=== PATIENT | female | born 1955 | race Caucasian/White ===

== ENCOUNTER 2023-04-06 07:23 | Day surgery (SDC) | payer OTHER, SELFPAY ==
--- OUTSIDE RECORDS SUMMARY | 2023-04-06 07:27 | XMS_ITS | Continuity of Care Document ---
Author Name [facility] Address [address] [place] [address] Organization [facility] Address [address] [place] [address] Care Team Providers Care Freight Flow Sales Leader Name Role Phone Gladys Patel Primary Care Provider Shon Emerson Attending Provider Allergies, Adverse Reactions, Alerts No known allergies. Medications Active Medications Medication Dose Units Route Sig Start Date Status Lisinopril 2.5 MG Oral DAILY November 03, 2022 Act taina Cyclobenzaprine 10 MG Oral THREE LOI ES A DAY PRN For muscle spasm November 03, 2022 Active Anastrozole 1 MG Oral DAILY November 03, 2022 Ac tive Atorvastatin 80 MG Oral DAILY November 03, 2022 A ctive Metformin 1000 MG Oral TWICE A DAY November 03, 2022 Active Glipizide 5 MG Oral TWICE A DAY November 03, 2022 Active Problem List No problem information available. Procedures No known history of procedures. Relevant Diagnostic Tests and/or Laboratory Data Laboratory Results Test Date/Time Result Interp. Ref. Range Result Comment White Blood Count March 01, 2023 10:59am 9.3 thou/cmm 4.80-10. 80 Red Blood Count March 01, 2023 10:59am 4.33 mill/cmm 4.20-5.4 0 Hemoglobin March 01, 2023 10:59am 12.6 g/dL 12.0-16. 0 Hematocrit March 01, 2023 10:59am 38.2 % 37.0-47. 0 Mean Corpuscular Volume March 01, 2023 10:59am 88.2 fL 81.0-99. 0 Mean Corpuscular Hemoglobin March 01, 2023 10:59am 29.1 pg 27.0-31. 0 Mean Corpuscular Hemoglobin Concent March 01, 2023 10:59am 33.0 g/dL 33.0-37. 0 Red Cell Distribution Width March 01, 2023 10:59am 12.8 % 11.5-14. 5 Platelet Count March 01, 2023 10:59am 363 thou/cmm 130-400 Mean Platelet Volume March 01, 2023 10:59am 9.4 fl 7.4-10.4 Absolute Neutrophil March 01, 2023 10:59am 5.5 thou/cmm 1.8-7.8 Immature Granulocyte % (Auto) March 01, 2023 10:59am 0.4 % Neutrophils (%) (Auto) March 01, 2023 10:59am 59.2 % 40.0-73. 0 Lymphocytes (%) (Auto) March 01, 2023 10:59am 30.3 % 18.0-48. 0 Monocytes (%) (Auto) March 01, 2023 10:59am 7.0 % 0.0-10.0 Eosinophils (%) (Auto) March 01, 2023 10:59am 2.0 % 0.0-5.0 Basophils (%) (Auto) March 01, 2023 10:59am 1.1 % 0.0-2.0 Immature Granulocyte # (Auto) March 01, 2023 10:59am 0.04 X10 3/uL 0.00-0.0 9 Neutrophils # (Auto) March 01, 2023 10:59am 5.5 thou/cmm 1.8-7.8 Lymphocytes # (Auto) March 01, 2023 10:59am 2.8 thou/cmm 0.7-4.5 Monocytes # (Auto) March 01, 2023 10:59am 0.7 thou/cmm 0.1-1.0 Eosinophils # (Auto) March 01, 2023 10:59am 0.2 thou/cmm 0.0-0.4 Basophils # (Auto) March 01, 2023 10:59am 0.1 thou/cmm 0-0.2 Nucleated Red Blood Cells % March 01, 2023 10:59am 0.0 /100 WBC 0.0-3.0 Sodium Level March 01, 2023 10:59am 140 mEq/L 137-145 Potassium Level March 01, 2023 10:59am 4.0 mEq/L 3.6-5.0 Chloride Level March 01, 2023 10:59am 103 mEq/L 98-107 Carbon Dioxide Level March 01, 2023 10:59am 28 mEq/L 22-30 Anion Gap March 01, 2023 10:59am 10 5-20 Blood Urea Nitrogen March 01, 2023 10:59am 14 mg/dL 7-17 Creatinine March 01, 2023 10:59am 0.5 mg/dL Low 0.7-1.5 Estimated Creatinine Clearance March 01, 2023 10:59am See comment Unable to Calculate CRCL,Ht and/or Wt missing Estimat Glomerular Filtration Rate March 01, 2023 10:59am 101 >90 Reported eGFR is based on the CKD-EPI 2020 equation that does not use a race coefficient. Additional information can be found at: [id number] ([email or web address]) BUN/Creatinine Ratio March 01, 2023 10:59am 28.0 Ratio High 7.0-25.0 Glucose Level March 01, 2023 10:59am 220 mg/dL High 70-100 Calcium Level March 01, 2023 10:59am 9.6 mg/dL 8.4-10.2 Total Bilirubin March 01, 2023 10:59am 0.4 mg/dL 0.2-1.3 Aspartate Amino Transf (AST/SGOT) March 01, 2023 10:59am 15 U/L 15-46 Alanine Aminotransferase (ALT/SGPT) March 01, 2023 10:59am 33 U/L 9-52 Total Protein March 01, 2023 10:59am 6.5 g/dL 6.3-8.2 Albumin March 01, 2023 10:59am 3.4 g/dL 3.4-5.0 Globulin March 01, 2023 10:59am 3.1 g/dL 2.4-3.5 Albumin/Globulin Ratio March 01, 2023 10:59am 1.1 % 1.1-2.2 Alkaline Phosphatase March 01, 2023 10:59am 192 U/L High 50-136 Carcinoembryonic Antigen March 01, 2023 10:59am 3.1 ng/mL 0.0-5.0 CA 27.29 March 01, 2023 10:59am 12.7 U/mL 0.0-38.6 Siemens Centaur Immunochemiluminometric Methodology (ICMA) Values obtained with different assay methods or kits cannot be used interchangeably. Results cannot be interpreted as absolute evidence of the presence or absence of malignant disease. Performed at: [address] [id number] Cushion Worker: Dallin Rangel MD, Phone: [phone] CA 15-3 Antigen March 01, 2023 10:59am 12.5 U/mL 0.0-25.0 [employer] Electrochemiluminescence Immunoassay (ECLIA) Values obtained with different assay methods or kits cannot be used interchangeably. Results cannot be interpreted as absolute evidence of the presence or absence of malignant disease. Performed at: [address] [id number] Cushion Worker: Dallin Rangel MD, Phone: [phone] Advance Directives Advance Directive Response Recorded Date/ Time Advance Directives No March 01, 2023 10:54am Health Care Proxy No March 01, 2023 10:54am Chief Complaint and Reason for Visit Encounter Admit Date Chief Complaint Reason for V isit Departed Referred March 01, 2023 10:50am lab Hospital Discharge Instructions No known hospital discharge instructions. Hospital Discharge Medications Medication Dose Units Route Sig Qty Days Order Date Status Ins tructions Lisinopril 2.5 MG Oral DAILY pato2022 Active Cyclobenzaprine 10 MG Oral THREE LOI ES A DAY PRN For muscle spasm November 03, 2022 Active Anastrozole 1 MG Oral DAILY Febr uary 2022 Active Atorvastatin 80 MG Oral DAILY Feb ruary 2022 Active Metformin 1000 MG Oral TWICE A DAY Fe bruary 2022 Active Glipizide 5 MG Oral TWICE A DAY Fe bru2022 Active Encounters Encounter Facility Location Admit/Visit Date Discharge/Departure Date Attending Provider Departed Referred [facility] [place] March 01, 2023 10:50am March 01, 2023 10:51am Shon Emerson Functional Status No known functional status. Immunizations No known immunizations. Plan of Care No Known Plan of Care Information Social History No known social history. Vital Signs No known vital signs results.
--- OUTSIDE RECORDS SUMMARY | 2023-04-06 07:27 | XMS_ITS | Continuity of Care Document ---
Author Name [facility] Address [address] [place] [address] Organization [facility] Address [address] [place] [address] Care Team Providers Care Information Technology Analyst Name Role Phone Gladys Patel Primary Care [...] coefficient. Additional information can be found at: [id number] ([email or web address]) BUN/Creatinine Ratio March 01, 2023 [...] or absence of malignant disease. Performed at: [address] [id number] Blue Leather Setter: Dallin Rangel MD, Phone: [phone] CA 15-3 Antigen March 01, 2023 10:59am 12.5 U/mL 0.0-25.0 [employer] Electrochemiluminescence Immunoassay (ECLIA) Values obtained with different assay methods or kits cannot be used interchangeably. Results cannot be interpreted as absolute evidence of the presence or absence of malignant disease. Performed at: [address] [id number] Blue Leather Setter: Dallin Rangel MD, Phone: [phone] Advance Directives Advance Directive Response Recorded Date/ [...] Date Discharge/Departure Date Attending Provider Departed Referred [facility] [place] March 01, 2023 10:50am March 01, 2023 10:51am Shon Emerson Functional Status No known functional status. Immunizations No known immunizations. Plan of Care No Known Plan of Care Information Social History No known social history. Vital Signs No known vital signs results.
--- OUTSIDE RECORDS SUMMARY | 2023-04-06 07:28 | XMS_ITS | Patient Health Record ---
Author Name Unknown Organization Unknown Care Team Providers Care Fast Food Crew Member Name Role Phone Jorge NELSON, Gladys Primary Care Provider Kacie Carter Unavailable [phone] ALLERGIES No Known Allergies REASON FOR REFERRAL No Information MEDICATIONS Medication SIG (Take, Route, Frequency, Duration) Notes Start Date End Date Status metFORMIN HCl 1000 MG Oral for 90 Active Lisinopril 2.5 MG Oral for 90 Active Anastrozole 1 MG Oral for 90 A ctive Cyclobenzaprine HCl 10 MG Oral for 20 Active glipiZIDE 5 MG Oral for 90 Act taina Atorvastatin Calcium 80 MG Oral for 90 Active traMADol HCl 50 MG Oral for 30 Active VITAL SIGNS Heart Rate 68 /min 09/30/2022 Temperature 98.1 degrees Fahrenheit 09/30/2022 Respiratory Rate 18 /min 09/30/2022 Blood pressure diastolic 72 mm Hg 09/30/2022 Oximetry 100 % 09/30/2022 Height-cm 167.64 cm 09/30/2022 Weight-kg 117.93 kg 09/30/2022 Height 5 ft 6 in in 09/30/2022 Blood pressure systolic 120 mm Hg 09/30/2022 Weight 260 lbs 09/30/2022 BMI 41.96 kg/m2 09/30/2022 Encounters Encounter Location Date Provider Diagnosis [facility] [address] [place] [address] VISHAL WINKLER [id number] 09/30/2022 Kacie Talamantes Insect bite (nonvenomous), left foot, initial encounter S90.862A ; Bitten or stung by nonvenomous insect and other nonvenomous arthropods, initial encounter W57.XXXA and Blister T14.8XXA ASSESSMENTS Encounter Date Diagnosis Assessment Notes Treatment Notes Treatment Clinical Notes 09/30/2022 Insect bite (nonvenomous), left foot, initial encounter (ICD-10 - S90.862A) 09/30/2022 Bitten or stung by nonvenomous insect and other nonvenomous arthropods, initial encounter (ICD-10 - W57.XXXA) 09/30/2022 Blister (ICD-10 - T14.8XXA) PLAN OF TREATMENT No Information Insurance Providers Payer Name Payer Address Payer Phone Subscriber Number Group Number Insured Name Patient Relationship to Insured Coverage Start Date Coverage End Date [employer] Supplement [address] [address] [place] [address] [id number] Sandra Rogers Self - patient is the insured 1 Medicare FCSO [address] [address] [place] [address] [id number] Sandra Rogers Self - patient is the insured 8 MEDICAL (GENERAL) HISTORY Medical History History ICD Code breast cancer hypertension hypercholesterolemia Surgical History Surgery Date(Month/Year) bilateral mastectomy
[2023-04-06] MEDS: TETRACAINE 0.5% OPHTH 1 DROP EYE-RIGHT ×2 (07:35→07:40)
[2023-04-06] MEDS: KETOROLAC OPHTH 0.5% 1 DROP EYE-RIGHT ×2 (07:35→07:40)
[2023-04-06 07:43] VITALS: BMI 41.9
[2023-04-06 07:46] VITALS: BP 155/84; PULSE 99; TEMP 36.7; O2SAT 94
[2023-04-06] MEDS: SODIUM CHLORIDE 0.9 % (FLUSH) 10 ML SYRINGE IVF (07:57)
--- NOTE | 2023-04-06 08:16 | W.ANESCHARGE ---
Anesthesia Charges Start Date/Time Anesthesia Start Date: 04/06/23 Anesthesia Start Time: 08:30 Stop Date/Time Anesthesia Stop Date: 04/06/23 Anesthesia Stop Time: 09:03
--- NOTE | 2023-04-06 08:35 | W.ANESCHARGE ---
Anesthesia Charges Start Date/Time Anesthesia Start Date: 04/06/23 Anesthesia Start Time: 08:30 Stop Date/Time Anesthesia Stop Date: 04/06/23 Anesthesia Stop Time: 09:03
[2023-04-06] MEDS: TETRACAINE 0.5% OPHTH 2 DROP EYE-RIGHT (08:36)
[2023-04-06] MEDS: BALANCED SALT IRRIG SOLN 15 ML EYE-RIGHT (08:40)
[2023-04-06 09:37] VITALS: BP 176/97; PULSE 96; RESP 20; TEMP 36.2; O2SAT 93
--- NOTE | 2023-04-06 09:50 | P.OPTPRC_ITS ---
Procedure Note Date of procedure: 04/06/23 Will [facility] bill your pro fee for this procedure?: Yes Procedure Description: SURGEON: Viviana Bueno MD PREOPERATIVE DIAGNOSIS: Nuclear sclerotic cataract, right eye. POSTOPERATIVE DIAGNOSIS: Nuclear sclerotic cataract, right eye. NAME OF OPERATION: Phacoemulsification of cataract with posterior chamber intraocular lens implantation in the right eye. ANESTHESIA: Topical. ESTIMATED BLOOD LOSS: Less than 2 cc. COMPLICATIONS: None. PATHOLOGY SPECIMEN: None. INDICATIONS: See consult note for details. The risks, benefits and alternatives of the procedure were explained to the patient, who elected to proceed and s igned informed consent to do so. PROCEDURE: The patient was brought to the pre-holding area where the right eye was identified as the operative eye. I placed my initials above this eye. The patient received eye drops consisting of 0.5% tetracaine, 1% tropicamide, 10% phenylephrine, and 0.5% ketorolac. The patient was then brought to the operating room where the right eye was again identified as the operative eye. The eye was prepped with Betadine and draped in the usual sterile ophthalmic fashion. A #15 super-sharp blade was used to create a paracentesis site. 1% non-preserved intracameral lidocaine was injected into the anterior chamber. Endocoat was injected into the anterior chamber. A 2.4 mm keratome was used to create a three-plane self-sealing incision 1 mm anterior to the temporal limbus. A cystotome was used to create an anterior capsular leaflet. The Utrata forceps were used to extend this to form a continuous curvilinear capsulorrhexis. Hydrodissection was performed. The cataract was removed with phacoemulsification using the [id number]-[id number]-svzadmy technique. The irrigation and aspiration tip was used to remove the remaining cortex. Healon was injected into the capsular bag. An RUTHIE ZCB00 intraocular lens of 22.0 diopters was injected into the capsular bag. The irrigation and aspiration tip was used to remove the remaining viscoelastic. Balanced salt solution on a cannula was used to hydrate the wound, and the wound was found to be watertight. The pupil was noted to be round. DISPOSITION: The patient was taken to the recovery room and discharged to home in stable condition. The patient was instructed to call me or go to the emergency department with any sudden change, including dramatic loss of vision, severe pain in the eye or eyebrow region, nausea, or vomiting. The patient will follow up in the clinic tomorrow morning.
== END 2023-04-06 09:40 | disposition home or self-care (01) ==
PROVIDERS: PCP Internal Medicine; Visit Provider Ophthalmology
PROC: (CPT 66984; principal; 2023-04-06 07:30)
DX: H25.11 Age-related nuclear cataract, right eye (principal)
CPT/HCPCS: 66984; 00142; 82962; J2250; J3010; V2632

== ENCOUNTER 2023-04-20 07:22 | Day surgery (SDC) | payer OTHER, SELFPAY ==
--- OUTSIDE RECORDS SUMMARY | 2023-04-20 07:24 | XMS_ITS | Continuity of Care Document ---
Author Name [facility] Address [address] [place] [address] Organization [facility] Address [address] [place] [address] Allergies, Adverse Reactions, Alerts No known allergies. [...] procedures. Relevant Diagnostic Tests and/or Laboratory Data No known relevant diagnostic tests, laboratory data, and/or discharge summary. Hospital Discharge Instructions No known hospital discharge instructions. Hospital Discharge Medications Medication Dose Units Route Sig Qty Days Order Date Status Ins tructions Lisinopril 2.5 MG Oral DAILY Febru pato 2022 Active Cyclobenzaprine 10 MG Oral THREE LOI ES A DAY PRN For muscle spasm November 03, 2022 Active Anastrozole 1 MG Oral DAILY Febr uary 2022 Active Atorvastatin 80 MG Oral DAILY Feb ruary 2022 Active Metformin 1000 MG Oral TWICE A DAY Fe bruary 2022 Active Glipizide 5 MG Oral TWICE A DAY Fe bruary 2022 Active Functional Status No known functional status. Immunizations No known immunizations. Plan of Care No Known Plan of Care Information Social History No known social history. Vital Signs No known vital signs results.
--- OUTSIDE RECORDS SUMMARY | 2023-04-20 07:24 | XMS_ITS | Continuity of Care Document ---
Author Name [facility] Address [address] [place] [address] Organization [facility] Address [address] [place] [address] Allergies, Adverse Reactions, Alerts No known allergies. [...]
--- OUTSIDE RECORDS SUMMARY | 2023-04-20 07:25 | XMS_ITS | Patient Health Record ---
Author Name Unknown Organization Unknown Care Team Providers Care Speech And Drama Teacher Name Role Phone Jorge NELSON, Gladys Primary Care Provider Kacie Carter Unavailable [phone] ALLERGIES No Known Allergies REASON FOR REFERRAL [...] 09/30/2022 Encounters Encounter Location Date Provider Diagnosis [facility] [address] [place] [address] VISHAL WINKLER [id number] 09/30/2022 Kacie Talamantes Insect bite (nonvenomous), left [...] Coverage End Date [employer] Supplement [address] [address] [place] [address] [id number] Sandra Rogers Self - patient is the insured 1 Medicare FCSO [address] [address] [place] [address] [id number] Sandra Rogers Self - patient is the insured 8 MEDICAL (GENERAL) HISTORY Medical History History ICD Code breast cancer hypertension hypercholesterolemia Surgical History Surgery Date(Month/Year) bilateral mastectomy
[2023-04-20] MEDS: TETRACAINE 0.5% OPHTH 1 DROP EYE-LEFT ×2 (07:37→07:59)
[2023-04-20] MEDS: KETOROLAC OPHTH 0.5% 1 DROP EYE-LEFT ×2 (07:37→07:59)
[2023-04-20 07:43] VITALS: BMI 42.0
[2023-04-20 07:47] VITALS: BP 135/72; PULSE 98; RESP 16; TEMP 36.6; O2SAT 95
--- NOTE | 2023-04-20 07:56 | SUR.PREOP ---
The eye drops brought by the patient (Ketorolac and Prednisolone) are examined and I have determined they are labeled by the patient's pharmacy for this patient as prescribed by the surgeon. The bottles are intact, recently obtained and appear to be correct. Kwame KELLY
[2023-04-20] MEDS: SODIUM CHLORIDE 0.9 % (FLUSH) 10 ML SYRINGE IVF (07:58)
--- NOTE | 2023-04-20 08:31 | W.ANESCHARGE ---
Anesthesia Charges Start Date/Time Anesthesia Start Date: 04/20/23 Anesthesia Start Time: 08:38 Stop Date/Time Anesthesia Stop Date: 04/20/23 Anesthesia Stop Time: 09:11
[2023-04-20] MEDS: TETRACAINE 0.5% OPHTH 2 DROP EYE-LEFT (08:41)
[2023-04-20] MEDS: BALANCED SALT IRRIG SOLN 15 ML EYE-LEFT (08:47)
[2023-04-20 09:10] VITALS: BP 141/73; PULSE 90; RESP 16; TEMP 36.2; O2SAT 96
--- NOTE | 2023-04-20 09:10 | W.ANESCHARGE ---
Anesthesia Charges Start Date/Time Anesthesia Start Date: 04/20/23 Anesthesia Start Time: 08:38 Stop Date/Time Anesthesia Stop Date: 04/20/23 Anesthesia Stop Time: 09:11
--- NOTE | 2023-04-20 09:57 | W.PM.OPTPROC ---
Procedure Note Date of procedure: 04/20/23 Will [facility] bill your pro fee for this procedure?: Yes Procedure Description: SURGEON: Viviana Bueno MD PREOPERATIVE DIAGNOSIS: Nuclear sclerotic cataract, left eye. POSTOPERATIVE DIAGNOSIS: Nuclear sclerotic cataract, left eye. NAME OF OPERATION: Phacoemulsification of cataract with posterior chamber intraocular lens implantation in the left eye. ANESTHESIA: Topical. ESTIMATED BLOOD LOSS: Less than 2 cc. COMPLICATIONS: None. PATHOLOGY SPECIMEN: None. INDICATIONS: See consult note for details. The risks, benefits and alternatives of the procedure were explained to the patient, who elected to proceed and signed informed consent to do so. PROCEDURE: The patient was brought to the pre-holding area where the left eye was identified as the operative eye. I placed my initials above this eye. The patient received eye drops consisting of 0.5% tetracaine, 1% tropicamide, 10% phenylephrine, and 0.5% ketorolac. The patient was then brought to the operating room where the left eye was again identified as the operative eye. The eye was prepped with Betadine and draped in the usual sterile ophthalmic fashion. A #15 super-sharp blade was used to create a paracentesis site. 1% non-preserved intracameral lidocaine was injected into the anterior chamber. Endocoat was injected into the anterior chamber. A 2.4 mm keratome was used to create a three-plane self-sealing incision 1 mm anterior to the temporal limbus. A cystotome was used to create an anterior capsular leaflet. The Utrata forceps were used to extend this to form a continuous curvilinear capsulorrhexis. Hydrodissection was performed. The cataract was removed with phacoemulsification using the [id number]-bfydtjz technique. The irrigation and aspiration tip was used to remove the remaining cortex. Healon was injected into the capsular bag. An RUTHIE ZCB00 intraocular lens of 23.5 diopters was injected into the capsular bag. The irrigation and aspiration tip was used to remove the remaining viscoelastic. Balanced salt solution on a cannula was used to hydrate the wound, and the wound was found to be watertight. The pupil was noted to be round. DISPOSITION: The patient was taken to the recovery room and discharged to home in stable condition. The patient was instructed to call me or go to the emergency department with any sudden change, including dramatic loss of vision, severe pain in the eye or eyebrow region, nausea, or vomiting. The patient will follow up in the clinic tomorrow morning.
== END 2023-04-20 09:35 | disposition home or self-care (01) ==
PROVIDERS: PCP Internal Medicine; Visit Provider Ophthalmology
PROC: (CPT 66984; principal; 2023-04-20 07:30)
DX: H25.12 Age-related nuclear cataract, left eye (principal)
CPT/HCPCS: 66984; 00142; A9270; J2250; J3010; V2632